=== PATIENT | female | born 1980 | race Caucasian/White ===

== ENCOUNTER 2022-02-15 21:25 | Emergency (ER) | payer OTHER ==
[~2022-02-15] VITALS: Ht 163.8 cm; Wt 119.7 kg
--- NOTE | 2022-02-15 21:33 | PHYS DOC ---
Adult General Chief Complaint Chief Complaint: ABDOMINAL PAIN HPI HPI Patient is a 41-year-old female presents with a chief complaint of abdominal pain that happened about an hour before coming into the emergency department when she was outside lifting some wood as she was cleaning her yard. States she went to go lift some wood and felt a little twinge or what felt like a sharp pain or tear in her left lower abdomen. States it is about 5 out of 10, sharp in nature. Denies any other recent traumas, illnesses, fevers, chest pain, other abdominal pain, nausea, vomiting, diarrhea, dysuria, hematuria, blood in the stool. Denies any vaginal bleeding, discharge or pain. Denies a history of STIs or concern thereof. Did not take any medications. Review of Systems Review of Systems Review of systems otherwise unremarkable except noted in HPI Physical Exam Physical Exam Constitutional: Well developed, well nourished, no acute distress, non-toxic appearance. [] HENT: Normocephalic, atraumatic, bilateral external ears normal, oropharynx moist, no oral exudates, nose normal. [] Eyes: conjunctiva normal, no discharge. [] Neck: Normal range of motion, no tenderness, supple, no stridor. [] Cardiovascular:Heart rate regular rhythm, no murmur [] Lungs & Thorax: Bilateral breath sounds clear to auscultation [] Abdomen: soft, small, approximately 1 cm soft, mobile reducible mass in the lower left abdominal wall suggestive of reducible hernia, reduced in the ED Skin: Warm, dry, no erythema, no rash. [] Back: No tenderness, no CVA tenderness. [] Extremities: No tenderness, no cyanosis, no clubbing, ROM intact, no edema. [] Neurologic: Alert and oriented X 3, normal motor function, normal sensory function, no focal deficits noted. [] Psychologic: Affect normal, judgement normal, mood normal. [] EKG EKG [] Radiology/Procedures Radiology/Procedures [] Heart Score C/O Chest Pain: No Risk Factors: Risk Factors: DM, Current or recent (<one month) smoker, HTN, HLP, family history of CAD, obesity. Risk Scores: Risk Factors: DM, Current or recent (<one month) smoker, HTN, HLP, family history of CAD, obesity. Course & Med Decision Making Course & Med Decision Making Patient is 41-year-old female presents with abdominal pain Vital signs notable for mild hypertension. Physical exam noted above. Given Tylenol and ibuprofen. Discussed management of hernias and symptom control at home. Given education on hernias. Given contact information for local primary care physicians as she just moved here and does not have 1. Advised to follow-up tomorrow to update on ED visit and establish care and set up a follow-up appointment to discuss continued management of hernias Gave return precautions to the ED. Patient grateful, verbalized understanding agree with plan of discharge [] Dragon Disclaimer Dragon Disclaimer This electronic medical record was generated, in whole or in part, using a voice recognition dictation system. Departure Departure: Impression: Primary Impression: Hernia Additional Impression: Abdominal pain Disposition: HOME / SELF CARE / HOMELESS Condition: STABLE Referrals: [facility] (PCP) ROYA HENRIQUEZ Patient Instructions: Hernia Additional Instructions: Thank you for coming into the emergency department tonight and allowing us to take care of you. Please read the attached information carefully go over things we discussed. You can continue Tylenol, ibuprofen, Benadryl and ice as needed. As we discussed a hernia belt would be helpful. You are given contact information for local primary care physician, to call first thing in the morning to update on ED visit, establish care and set up a follow-up appointment. Please come back with new or concerning symptoms as discussed. Problem Qualifiers AUTUMN SUAREZ MD Feb 15, 2022 21:33
[2022-02-15 21:57] VITALS: BP 138/80
[2022-02-15] MEDS ORDERED: ACETAMINOPHEN 500 MG TABLET PO ONE (22:00)
[2022-02-15] MEDS ORDERED: IBUPROFEN 600 MG TABLET. PO ONE (22:00)
== END 2022-02-15 22:06 | disposition home or self-care (01) ==
LOC: ER 21:25
DX: K46.9 Unspecified abdominal hernia without obstruction or gangrene (principal)
CPT/HCPCS: 99283

== ENCOUNTER → 2022-02-17 | Outpatient (CLI) | payer OTHER ==
[2022-02-15 21:57] VITALS: BP 138/80
[~2022-02-17] MED LIST: IOHEXOL 240 MG/ML 50ML VIAL. PO ONE; IOHEXOL 300 MG/ML 75 ML VIAL. IV ONE
--- NOTE | 2022-02-17 13:39 | RAD ---
INDICATION: Reason: LOWER ABD PAIN/HERNIA GIVEN ORAL AND 75 ML OMNI 300 IV / Spl. Instructions: / Hi story: COMPARISON: None. TECHNIQUE: Axial CT images were obtained through the abdomen and pelvis with intravenous contrast. One or more of the following individualized dose reduction techniques were utilized for this examinat ion: 1. Automated exposure control; 2. Adjustment of the mA and/or kV according to patient size; 3 . Use of iterative reconstruction technique. FINDINGS: Vascular: No abdominal aortic aneurysm. Hepatobiliary: No intrahepatic biliary duct dilation. Pancreas: No peripancreatic edema. Spleen: Spleen is mildly prominent in size. Adjacent probable splenule. Renal/Bladder: No hydronephrosis. Mild haziness in the fat adjacent to the anterior aspect of the uri nary bladder which is partially distended. Heterogenous appearance of the uterus including a low density masslike structure near the fundus with in the myometrium measuring 23 mm. Gastrointestinal: Colonic diverticulosis. Fat-containing umbilical hernia. There are suspected small fat-containing inguinal hernias. Degenerative changes of the spine. Multilevel central canal and neural foraminal stenosis. IMPRESSION: * Small amount of haziness in the fat adjacent to the urinary bladder. Would correlate with symptom s in the region to ensure this is not from a pathologic cause such as mild urinary tract infection. T here is also some prominence of the adjacent wall which could be secondary to inflammation but cannot exclude a lesion along the wall. * Heterogeneity of the uterus most likely from uterine fibroids. * Suspected small fat-containing inguinal hernias and small fat-containing umbilical hernia. Electronically signed by: Jayesh Santoyo MD (02/17/2022 1:37 PM) [id number]
== END ==
LOC: CT 11:42
PROVIDERS: ATTEND Family Medicine
DX: K42.9 Umbilical hernia without obstruction or gangrene (principal); K40.90 Unilateral inguinal hernia, without obstruction or gangrene, not specified as recurrent; K57.30 Diverticulosis of large intestine without perforation or abscess without bleeding; N39.0 Urinary tract infection, site not specified; M48.07 Spinal stenosis, lumbosacral region
CPT/HCPCS: 74177; Q9966; Q9967

== ENCOUNTER 2022-02-28 22:00 | Emergency (ER) | payer OTHER ==
[~2022-02-28] VITALS: Ht 163.8 cm; Wt 121.4 kg
--- NOTE | 2022-02-28 22:15 | PHYS DOC ---
Past History Past Medical History: UTI Additional Past Medical Histor: tachycardia, heart murmur Past Medical History Hx. Genital Herpes, and Genital warts Past Surgical History: Appendectomy, Alcohol Use: None General Adult HPI: HPI: ".. I worried .. I may have an infection. .. I had surgery on wednesday... Dr. Shirley... at [facility].. .. to fix some hernia... I tried to call my surgeon... But I did not have his number at the hospital for pt 's to call and hospital would not call him... '" The surgery seem okay... not particularly tender and are not having any drainage." Patient is a 41 year old femal who presents with above hx and complaints fever and constipation. Patient had surgery of 3 hernias umbilical and bilateral inguinal. Surgery done by laparoscopic repair. Sites look well and do not seem erythemic or draining. Abdomen abdomen is not hot to the touch. Patient has had subjective fevers. Patient has had some problems with constipation and has a has taken stool softeners milk of mag and finally had a hard bowel movement on 422. Patient has oxycodone for discomfort but does not take it because it makes her feel tired. Patient has been taking Diltiazem prn for tachycardia. Pt. also been taking Valcyclovir for herpies suspressing. Pt as been take promethazine as needed as needed for nausea. Patient has had 1 COVID vaccination Moderna. Has not completed flu vaccinations. Patient is on amitriptly. Does have a history of hypertension and an episodic episodes of tachycardia supraventricular tachycardia which she takes meds as needed. She has had history of cystitis, herpes, and uses progesterone perimenopausal complaints. Patient complains of tachycardia. Patient does have past medical history of genital herpes and genital warts.. Has had a history of schizoaffective disorder. Does take Abilify. Patient does have a history of periodic episodes of tachycardia. Takes Diltiazem as needed for tachycardia. Has had. laparoscopic surgeries for and tubal ligations. Has had genital warts removed.. Patient had a repair of umbilical hernia and bilateral inguinal hernia on Wednesday in [place]. No history of recent bad food intake. No history recent travel. No history of significant ill contacts. Hx.of constipation since her surgery. Patient did not get flu vaccination . Patient did get Moderna in June 2021. Patient had negative COVID test on Wednesday and Wednesday this past week. Review of Systems: Review of Systems: Constitutional: Hx of fever and chills Eyes: Denies change in visual acuity HENT: Denies nasal congestion or sore throat Respiratory: Denies cough or shortness of breath Cardiovascular: Denies chest pain or edema GI: Complaints of mild abdominal pain, nausea and constipation. Denies, vomiting, bloody stools or diarrhea : Denies dysuria Musculoskeletal: Denies back pain or joint pain Integument: Denies rash Neurologic: Denies headache, focal weakness or sensory changes Endocrine: Denies polyuria or polydipsia Lymphatic: Denies swollen glands Psychiatric: Denies depression or anxiety Family History: Family History: Noncontributory presentation Current Medications: Current Meds: See nursing for home meds Allergies: Allergies: Allergies Coded Allergies Type Severity Reaction Last Updated Verified No Known Drug Allergies 02/15/22 No Physical Exam: PE: Constitutional: Moderate acute distress, non-toxic appearance. [] Complains of fever. HENT: Normocephalic, atraumatic, bilateral external ears normal, oropharynx moist, no oral exudates, nose swollen turbinates and clear rhinorrhea. Postnasal drainage. Eyes: PERRLA, EOMI, conjunctiva normal, no discharge. [] Neck: Normal range of motion, no tenderness, supple, no stridor. [] Cardiovascular:Heart rate regular rhythm, no murmur [] Lungs & Thorax: Bilateral breath sounds equal apex on auscultation [] Abdomen: Bowel sounds normal, soft, mild generalized tenderness, no masses, no pulsatile masses. Suture sites appear to be stable. No drainage. No erythema. Abdomen is distended. No true rebound painful areas. Skin: Warm, dry, no erythema, no rash. [] Back: No tenderness, no CVA tenderness. [] Extremities: No tenderness, no cyanosis, no clubbing, ROM intact, no edema. No Trousseau sign. Neurologic: Alert and oriented X 3, normal motor function, normal sensory function, no focal deficits noted. [] Psychologic: Affect anxious, judgement normal, mood normal. [] EKG: EKG: [] Radiology/Procedures: Radiology/Procedures: [][address] [address] IMAGING REPORT Signed PATIENT: MICHAEL GOMES ACCOUNT: [id number] : 1980 LOCATION: ER AGE: 41 SEX: F EXAM STATUS: REG ER ORD. PHYSICIAN: RUTH MUNOZ MD REASON: abdomen pain- post surgery wednesday for hernia PROCEDURE: ACUTE ABDOMEN SERIES Exam Date: 02/28/2022 11:10 PM XR ABDOMEN COMP ACUTE Indication: Pain. Reason: abdomen pain- post surgery wednesday for hernia / Spl. Instructions: / History: . FINDINGS/ IMPRESSION: CHEST: The cardiac silhouette, pulmonary vasculature and lung belcher are within normal limits. The osseous structures are intact. ABDOMEN AND PELVIS: There is a non-dilated, non-obstructed bowel gas pattern. Air and fecal matter are seen within the colon. The visualized osseous structures are intact. Electronically signed by: Nidhi Hernandez MD (03/01/2022 12:10 AM) [id number] DICTATED AND SIGNED BY: NIDHI HERNANDEZ MD DATE: 03/01/22 0008 CC: RUTH MUNOZ MD; [facility] [employer] ~ Heart Score: C/O Chest Pain: N/A HEART Score for Chest Pain: HEART Score for Chest Pain Response (Comments) Value Age < 45 0 Risk Factors No Risk Factors 0 Troponin < Normal Limit 0 Total 0 Risk Factors: Risk Factors: DM, Current or recent (<one month) smoker, HTN, HLP, family history of CAD, obesity. Risk Scores: Score 0 - 3: 2.5% MACE over next 6 weeks - Discharge Home Score 4 - 6: 20.3% MACE over next 6 weeks - Admit for Clinical Observation Score 7 - 10: 72.7% MACE over next 6 weeks - Early Invasive Strategies Course & Med Decision Making: Course & Med Decision Making Pertinent Labs and Imaging studies reviewed. (See chart for details) Patient stay on clear fluid diet only x2 days. No solids. No milk products. Push fluids. Clear fluids such as apple juice, grape juice, popsicles, sweet tea, Gatorade. Keep record of blood sugars before a.m. meal, noon meal, supper. Take Tylenol and ibuprofen as needed for pain or discomfort or fever. Follow- up pending cultures. Return if any concerns. Expect some cramping with passage of stool. Impression: 1. Abdomen Pain 2. Constipation 3. Fever 4. Viral Syndrome 5. DM [] Dragon Disclaimer: Dragon Disclaimer: This electronic medical record was generated, in whole or in part, using a voice recognition dictation system. Departure Departure: Referrals: SOILA BRAVOP (PCP) Felicita Disclaimer This chart was dictated in whole or in part using Voice Recognition software in a busy, high-work load, and often noisy Emergency Department environment. It may contain unintended and wholly unrecognized errors or omissions. Dragon Disclaimer This chart was dictated in whole or in part using Voice Recognition software in a busy, high-work load, and often noisy Emergency Department environment. It may contain unintended and wholly unrecognized errors or omissions. RUTH MUNOZ MD Feb 28, 2022 22:15
[2022-02-28] MEDS ORDERED: ONDANSETRON PF 4 MG/2 ML VIAL. IVP ONE (23:00)
[2022-02-28] MEDS ORDERED: KETOROLAC 30 MG/ML VIAL. IVP ONE (23:00)
[2022-02-28] MEDS ORDERED: FAMOTIDINE 20 MG/2 ML VIAL IVP ONE (23:00)
[2022-02-28] MEDS ORDERED: IV RINGERS SOLUTION,LACTATED 1,000 ML IV SCH (23:00)
[2022-03-01 00:04] LABS: BASO % 0 % (0-3); EOS # 0.2 x10^3/uL (0.0-0.7); EOS % 3 % (0-3); HEMATOCRIT 40.4 % (36.0-47.0); HEMOGLOBIN 13.5 g/dL (12.0-15.5); LYMPH # 2.5 x10^3/uL (1.0-4.8); LYMPH % 36 % (24-48); MEAN CORPUSCULAR HEMOGLOBIN 29 pg (25-35); MEAN CORPUSCULAR HGB CONC 33 g/dL (31-37); MEAN CORPUSCULAR VOLUME 86 fL (79-100); MONO # 0.7 x10^3/uL (0.0-1.1); MONO % 10 % (0-9); NEUT # 3.4 x10^3uL (1.8-7.7); NEUT % 51 % (31-73); PLATELET COUNT 178 x10^3/uL (140-400); WHITE BLOOD COUNT 6.8 x10^3/uL (4.0-11.0)
[2022-03-01 00:11] LABS: BARBITURATES NEG (NEG); BENZODIAZEPINES NEG (NEG); CANNABINOIDS NEG (NEG); COCAINE NEG (NEG); METHADONE NEG (NEG); OPIATES NEG (NEG); PHENCYCLIDINE NEG (NEG)
--- NOTE | 2022-03-01 00:13 | RAD ---
Exam Date: 02/28/2022 11:10 PM XR ABDOMEN COMP ACUTE Indication: Pain. Reason: abdomen pain- post surgery wednesday for hernia / Spl. Instructions: / Histo ry: . FINDINGS/ IMPRESSION: CHEST: The cardiac silhouette, pulmonary vasculature and lung belcher are within normal limits. The osseous structures are intact. ABDOMEN AND PELVIS: There is a non-dilated, non-obstructed bowel gas pattern. Air and fecal matter are seen within the c olon. The visualized osseous structures are intact. Electronically signed by: Yuniel Hernandez MD (03/01/2022 12:10 AM) [id number]
[2022-03-01 00:14] LABS: BACTERIA,URINE MOD /HPF (0-FEW); CLARITY,URINE CLEAR; COLOR,URINE YELLOW; GLUCOSE,URINE NEG (NEG); NITRITE,URINE NEG (NEG); SQUAMOUS EPITHELIAL CELL,UR MANY /LPF; UROBILINOGEN,URINE 0.2 mg/dL (0.2 mg/dL)
[2022-03-01 00:14] LABS: CALCIUM 9.2 mg/dL (8.5-10.1); CREATININE 0.9 mg/dL (0.6-1.0); GFR 68.3; POTASSIUM 4.3 mmol/L (3.5-5.1)
[2022-03-01 00:20] LABS: ALBUMIN 3.3 g/dL (3.4-5.0); DIRECT BILIRUBIN 0.1 mg/dL (0.0-0.2); TOTAL BILIRUBIN 0.3 mg/dL (0.2-1.0); TOTAL PROTEIN 6.7 g/dL (6.4-8.2)
[2022-03-01 00:21] LABS: INFLUENZA A PATIENT NEGATIVE (NEGATIVE); INFLUENZA B PATIENT NEGATIVE (NEGATIVE)
[2022-03-01 00:22] LABS: AMPHETAMINE/METHAMPHETAMINE NEG (NEG)
[2022-03-01] MEDS ORDERED: MAGNESIUM CITRATE 296 ML SOLUTION. PO ONE (03:30)
== END 2022-03-01 03:30 | disposition home or self-care (01) ==
LOC: ER 22:00
DX: K59.00 Constipation, unspecified (principal); B34.9 Viral infection, unspecified; E11.9 Type 2 diabetes mellitus without complications; F20.9 Schizophrenia, unspecified; I10 Essential (primary) hypertension; Z20.822 Contact with and (suspected) exposure to COVID-19; Z87.440 Personal history of urinary (tract) infections; Z90.89 Acquired absence of other organs; Z98.890 Other specified postprocedural states
CPT/HCPCS: 36415; 74022; 80048; 80076; 80307; 81001; 81025; 82550; 83690; 85025; 87086; 87428; 96361; 96374; 96375; 99284; J1885; J2405; J3490; J7120

== ENCOUNTER 2022-03-03 20:09 | Emergency (ER) | payer OTHER ==
[~2022-03-03] VITALS: Ht 163.8 cm; Wt 121.4 kg
[2022-03-03 20:15] VITALS: BP 112/65
--- NOTE | 2022-03-03 21:07 | PHYS DOC ---
Past History Past Medical History: UTI Additional Past Medical Histor: tachycardia, heart murmur; interstitial cystitis; genital herpes; nikky-rachid Past Surgical History: Appendectomy, , Tubal ligation, Other Additional Past Surgical Histo: abdominal herniasx3 done on Wednesday; genital warts removed Alcohol Use: None Adult General Chief Complaint Chief Complaint: LOWER EXT PAIN HPI HPI Patient is a 41-year-old female who presents with a chief complaint of dysuria which started yesterday. Denies any recent travels, illness, fevers, chest pain, shortness of breath, abdominal pain, nausea, vomiting, diarrhea. Denies any hematuria. Denies any vaginal bleeding, discharge, pain or history of STIs or concern thereof. Review of Systems Review of Systems Review of systems otherwise unremarkable except noted in HPI Allergies Allergies Allergies Coded Allergies Type Severity Reaction Last Updated Verified azithromycin Allergy Intermediate 02/28/22 Yes ciprofloxacin Allergy Intermediate 02/28/22 Yes Physical Exam Physical Exam Constitutional: Well developed, well nourished, no acute distress, non-toxic appearance. [] HENT: Normocephalic, atraumatic, bilateral external ears normal, oropharynx moist, no oral exudates, nose normal. [] Cardiovascular:Heart rate regular rhythm, no murmur [] Lungs & Thorax: Bilateral breath sounds clear to auscultation [] Abdomen: soft, no tenderness, Skin: Warm, dry, no erythema, no rash. [] Back: no CVA tenderness. [] Extremities: No tenderness, no cyanosis, no clubbing, ROM intact, no edema. [] Neurologic: Alert and oriented X 3, normal motor function, normal sensory function, no focal deficits noted. [] Psychologic: Affect normal, judgement normal, mood normal. [] EKG EKG [] Radiology/Procedures Radiology/Procedures [] Heart Score C/O Chest Pain: No Risk Factors: Risk Factors: DM, Current or recent (<one month) smoker, HTN, HLP, family history of CAD, obesity. Risk Scores: Risk Factors: DM, Current or recent (<one month) smoker, HTN, HLP, family history of CAD, obesity. Course & Med Decision Making Course & Med Decision Making Patient is 41-year-old female presents with dysuria Vital signs nonconcerning. Physical exam noted above. Urinalysis with a few bacteria but no nitrite or leuk esterase. Given patient's symptoms, started on antibiotics and advised to follow-up with primary care physician for repeat urinalysis Discussed all findings with patient. Advised to follow-up in the morning with primary care physician and set up a follow-up appointment. Gave return precautions to the ED Patient grateful, verbalized understanding and agreed with plan of discharge [] Dragon Disclaimer Dragon Disclaimer This electronic medical record was generated, in whole or in part, using a voice recognition dictation system. Departure Departure: Impression: Primary Impression: Dysuria Additional Impression: Sterile pyuria Disposition: HOME / SELF CARE / HOMELESS Condition: STABLE Referrals: SOILA BRAVO (PCP) Patient Instructions: Dysuria Additional Instructions: Thank you for coming into the emergency department tonight and allowing us to take care of you. Please read the attached information carefully to go over things we discussed. You can use Tylenol, ibuprofen and Benadryl as needed. Please take antibiotics as prescribed until gone. Please follow-up in the morning with your primary care physician to update on ED visit and set up a follow-up. Is also prudent to follow-up with your surgeon. Please come in with new or concerning symptoms as discussed. Scripts Cephalexin (KEFLEX) 500 Mg Capsule 1 CAP PO TID for dysuria for 5 Days, #15 CAP Prov: AUTUMN SUAREZ MD 03/03/22 Problem Qualifiers AUTUMN SUAREZ MD Mar 03, 2022 21:07
[2022-03-03 22:17] LABS: CLARITY,URINE CLEAR; COLOR,URINE YELLOW; GLUCOSE,URINE NEG (NEG); NITRITE,URINE NEG (NEG); UROBILINOGEN,URINE 0.2 mg/dL (0.2 mg/dL)
[2022-03-03 22:18] LABS: BACTERIA,URINE FEW /HPF (0-FEW); RBC,URINE 0 /HPF (0-2); SQUAMOUS EPITHELIAL CELL,UR MANY /LPF
[2022-03-03] MEDS ORDERED: CEPH500C PO (22:24)
[2022-03-03] MEDS ORDERED: PHENAZOPYRIDINE 200 MG TABLET. PO ONE (23:00)
[2022-03-03] MEDS ORDERED: CEPHALEXIN 250 MG CAPSULE PO ONE (23:00)
== END 2022-03-03 22:40 | disposition home or self-care (01) ==
LOC: ER 20:09
DX: R82.81 Pyuria (principal); R30.0 Dysuria; Z87.440 Personal history of urinary (tract) infections; Z88.1 Allergy status to other antibiotic agents
CPT/HCPCS: 81001; 81025; 99283

== ENCOUNTER 2022-03-16 22:38 | Emergency (ER) | payer OTHER ==
[~2022-03-16] VITALS: Ht 162.6 cm; Wt 122.5 kg
[~2022-03-16 22:38] MED LIST changes: +CEPH500C PO; -IOHEXOL 240 MG/ML 50ML VIAL. PO ONE; -IOHEXOL 300 MG/ML 75 ML VIAL. IV ONE
--- NOTE | 2022-03-16 23:19 | PHYS DOC ---
Past History Past Medical History: UTI Additional Past Medical Histor: heart murmur Past Surgical History: Other Additional Past Surgical Histo: hernia repair Alcohol Use: None General Adult EDM: Chief Complaint: ABDOMINAL PAIN HPI: HPI: 41-year-old female presents with lower abdominal pain. The patient is 4 weeks post laparoscopic ventral hernia repair. She started to have more discomfort today and went home from work. She thought she would just rest and see if her get better. Throughout the evening it felt like she had a fullness in the lower abdomen along with a sharp stabbing pain of moderate intensity. The pain was not improving so she came into the emergency room. Patient denies fever or chills. She has not had any nausea, vomiting, or diarrhea. Review of Systems: Review of Systems: Constitutional: Denies fever or chills Eyes: Denies change in visual acuity HENT: Denies nasal congestion or sore throat Respiratory: Denies cough or shortness of breath Cardiovascular: Denies chest pain or edema GI: Lower abdominal pain. Denies nausea, vomiting, bloody stools or diarrhea : Denies dysuria Musculoskeletal: Denies back pain or joint pain Integument: Denies rash Neurologic: Denies headache, focal weakness or sensory changes Endocrine: Denies polyuria or polydipsia Lymphatic: Denies swollen glands Psychiatric: Denies depression or anxiety Current Medications: Current Meds: Current Medications Medications (Trade) Dose Ordered Sig/Syd Start Time Stop Time Status Last Admin Dose Admin Ondansetron HCl (Zofran) 4 mg 1X ONCE 03/16/22 23:30 03/16/22 23:31 Sodium Chloride 1,000 ml @ 1,000 mls/hr 1X ONCE 03/16/22 23:30 03/17/22 00:29 Allergies: Allergies: Allergies Coded Allergies Type Severity Reaction Last Updated Verified azithromycin Allergy Intermediate 02/28/22 Yes ciprofloxacin Allergy Intermediate 02/28/22 Yes Physical Exam: PE: Constitutional: Well developed, well nourished, morbidly obese, no acute distress, non-toxic appearance. [] HENT: Normocephalic, atraumatic, bilateral external ears normal, oropharynx moist, no oral exudates, nose normal. [] Eyes: PERRLA, EOMI, conjunctiva normal, no discharge. [] Neck: Normal range of motion, no tenderness, supple, no stridor. [] Cardiovascular: Heart rate regular rhythm, no murmur [] Lungs & Thorax: Bilateral breath sounds clear to auscultation [] Abdomen: Bowel sounds normal, soft, lower abdominal tenderness with guarding, no masses, no pulsatile masses. [] Skin: Warm, dry, no erythema, no rash. [] Back: No tenderness, no CVA tenderness. [] Extremities: No tenderness, no cyanosis, no clubbing, ROM intact, no edema. [] Neurologic: Alert and oriented X 3, normal motor function, normal sensory function, no focal deficits noted. [] Psychologic: Affect normal, judgement normal, mood anxious. [] Current Patient Data: Vital Signs: Vital Signs Date Time Temp Pulse Resp B/P (MAP) Pulse Ox O2 Delivery O2 Flow Rate FiO2 03/16/22 22:55 98.4 85 20 124/87 (99) 97 Room Air EKG: EKG: [] Radiology/Procedures: Radiology/Procedures: [] Impressions: Exam: CT abdomen/pelvis without intravenous contrast Indication: Lower abdominal pain for 4 weeks post hernia repair Comparison: CT abdomen pelvis 02/17/2022 Technique: Helical CT imaging performed of the abdomen and pelvis without the use of intravenous contrast. Sagittal and coronal reformats were obtained. One or more of the following individualized dose reduction techniques were utilized for this examination: 1. Automated exposure control 2. Adjustment of the mA and/or kV according to patient size 3. Use of iterative reconstruction technique. Findings: Inherently limited evaluation without intravenous contrast. Lower chest: There is a calcified granuloma in the right lower lobe. Heart is normal in size. Liver: The liver is mildly enlarged measuring 20.6 cm craniocaudally. Gallbladder/Biliary Tree: Normal. Pancreas: Normal. Spleen: Normal. Adrenal Glands: Normal Kidneys/Ureters/Bladder: Kidneys are normal in size. No nephrolithiasis or hydronephrosis. Ureters and bladder are normal. Reproductive Organs: Uterus is anteverted. No adnexal mass. Stomach, small bowel, and colon: The stomach is normal. There is no small bowel obstruction. The appendix is surgically absent. The colon is normal. Vasculature: No aortic aneurysm. Lymph Nodes: No lymphadenopathy. Peritoneum and retroperitoneum: Trace free fluid or surgical material in the lower anterior pelvis. No free air. Bones: No acute osseous abnormality. Miscellaneous: New surgical changes of bilateral inguinal hernia repair and probable umbilical hernia repair. No recurrent hernia. IMPRESSION: New surgical changes of bilateral inguinal hernia repair and probable umbilical hernia repair. No acute abnormality. Electronically signed by: Charisse Wolfe MD (03/17/2022 12:24 AM) [facility] DICTATED AND SIGNED BY: CHARISSE WOLFE MD DATE: 03/17/22 0008 CC: ARELI TEE DO; PCP,NO ~ Heart Score: C/O Chest Pain: N/A Risk Factors: Risk Factors: DM, Current or recent (<one month) smoker, HTN, HLP, family history of CAD, obesity. Risk Scores: Score 0 - 3: 2.5% MACE over next 6 weeks - Discharge Home Score 4 - 6: 20.3% MACE over next 6 weeks - Admit for Clinical Observation Score 7 - 10: 72.7% MACE over next 6 weeks - Early Invasive Strategies Course & Med Decision Making: Course & Med Decision Making Pertinent Labs and Imaging studies reviewed. (See chart for details) I given the patient 2 mg of morphine and 4 mg Zofran for her pain. Labs are unremarkable. Her urinalysis is negative for infection. Her CT of the abdomen pelvis shows no acute findings. There is evidence of hernia repair. Not exactly sure why it is hurting the patient more today. I advised that she follow-up with her surgeon's office tomorrow to discuss it. I will give her a short course of [place] for home. She is stable for discharge at this time. [] Felicita Disclaimer: Felicita Disclaimer: This electronic medical record was generated, in whole or in part, using a voice recognition dictation system. Departure Departure: Impression: Primary Impression: Abdominal pain Disposition: HOME / SELF CARE / HOMELESS Condition: STABLE Referrals: PCP,NO (PCP) Patient Instructions: Abdominal Pain, [id number] ARELI TEE DO March 16, 2022 23:19
[2022-03-16] MEDS ORDERED: IV NORMAL SALINE 1,000ML 1,000 ML IV ONE (23:30)
[2022-03-16] MEDS ORDERED: ONDANSETRON PF 4 MG/2 ML VIAL. IVP ONE (23:30)
[2022-03-16 23:40] LABS: BASO # 0.1 x10^3/uL (0.0-0.2); BASO % 1 % (0-3); EOS # 0.7 x10^3/uL (0.0-0.7); EOS % 9 % (0-3); HEMATOCRIT 40.1 % (36.0-47.0); HEMOGLOBIN 13.4 g/dL (12.0-15.5); LYMPH # 3.1 x10^3/uL (1.0-4.8); LYMPH % 40 % (24-48); MEAN CORPUSCULAR HEMOGLOBIN 29 pg (25-35); MEAN CORPUSCULAR HGB CONC 33 g/dL (31-37); MEAN CORPUSCULAR VOLUME 87 fL (79-100); MONO # 0.8 x10^3/uL (0.0-1.1); MONO % 10 % (0-9); NEUT # 3.1 x10^3uL (1.8-7.7); NEUT % 41 % (31-73); PLATELET COUNT 147 x10^3/uL (140-400); RED BLOOD COUNT 4.59 x10^6/uL (3.50-5.40); WHITE BLOOD COUNT 7.6 x10^3/uL (4.0-11.0)
[2022-03-16] MEDS ORDERED: MORPHINE SULFATE 2 MG/ML DISP.SYRIN. IV ONE (23:45)
[2022-03-16 23:46] LABS: CALCIUM 8.6 mg/dL (8.5-10.1); CREATININE 0.9 mg/dL (0.6-1.0); GFR 68.3; POTASSIUM 3.9 mmol/L (3.5-5.1)
[2022-03-16 23:53] LABS: BACTERIA,URINE FEW /HPF (0-FEW); CLARITY,URINE CLOUDY; COLOR,URINE YELLOW; GLUCOSE,URINE NEG (NEG); NITRITE,URINE NEG (NEG); RBC,URINE 0 /HPF (0-2); SQUAMOUS EPITHELIAL CELL,UR MANY /LPF; UROBILINOGEN,URINE 0.2 mg/dL (0.2 mg/dL); WBC,URINE OCC /HPF (0-4)
[2022-03-16 23:57] LABS: ALBUMIN 3.3 g/dL (3.4-5.0); ALBUMIN/GLOBULIN RATIO 0.9 (1.0-1.7); TOTAL BILIRUBIN 0.2 mg/dL (0.2-1.0); TOTAL PROTEIN 6.9 g/dL (6.4-8.2)
--- NOTE | 2022-03-17 00:26 | RAD ---
Exam: CT abdomen/pelvis without intravenous contrast Indication: Lower abdominal pain for 4 weeks post hernia repair Comparison: CT abdomen pelvis 02/17/2022 Technique: Helical CT imaging performed of the abdomen and pelvis without the use of intravenous cont rast. Sagittal and coronal reformats were obtained. One or more of the following individualized dose reduction techniques were utilized for this examinat ion: 1. Automated exposure control 2. Adjustment of the mA and/or kV according to patient size 3. Use of iterative reconstruction technique. Findings: Inherently limited evaluation without intravenous contrast. Lower chest: There is a calcified granuloma in the right lower lobe. Heart is normal in size. Liver: The liver is mildly enlarged measuring 20.6 cm craniocaudally. Gallbladder/Biliary Tree: Normal. Pancreas: Normal. Spleen: Normal. Adrenal Glands: Normal Kidneys/Ureters/Bladder: Kidneys are normal in size. No nephrolithiasis or hydronephrosis. Ureters an d bladder are normal. Reproductive Organs: Uterus is anteverted. No adnexal mass. Stomach, small bowel, and colon: The stomach is normal. There is no small bowel obstruction. The appe ndix is surgically absent. The colon is normal. Vasculature: No aortic aneurysm. Lymph Nodes: No lymphadenopathy. Peritoneum and retroperitoneum: Trace free fluid or surgical material in the lower anterior pelvis. N o free air. Bones: No acute osseous abnormality. Miscellaneous: New surgical changes of bilateral inguinal hernia repair and probable umbilical hernia repair. No recurrent hernia. IMPRESSION: New surgical changes of bilateral inguinal hernia repair and probable umbilical hernia r epair. No acute abnormality. Electronically signed by: Charisse Wolfe MD (03/17/2022 12:24 AM) [facility]
[2022-03-17] MEDS ORDERED: HYDR-2759 PO (00:37)
[2022-03-17 00:46] VITALS: BP 122/76
== END 2022-03-17 00:45 | disposition home or self-care (01) ==
LOC: ER 22:38
DX: R10.30 Lower abdominal pain, unspecified (principal); E66.01 Morbid (severe) obesity due to excess calories; Z68.42 Body mass index [BMI] 45.0-49.9, adult; Z87.440 Personal history of urinary (tract) infections; Z88.1 Allergy status to other antibiotic agents
CPT/HCPCS: 36415; 74176; 80053; 81001; 85025; 96361; 96374; 96375; 99284; J2270; J2405; J7030